=== PATIENT | male | born 1970 | race Caucasian/White ===

== ENCOUNTER 2024-01-11 06:06 | Inpatient (IN) | payer BC, SELFPAY ==
[2024-01-02 07:45] VITALS: BMI 42.5
[2024-01-02 10:43] LABS: Hematocrit 43.9 % (39.0-52.0); Hemoglobin 15.1 g/dL (13.0-18.0); Mean Corp Hgb Conc. 34.4 g/dL (33.0-37.0); Mean Corpuscular Hgb 31.5 pg (27.0-31.0); Mean Corpuscular Volume 91.5 fL (80.0-94.0); Mean Platelet Volume 12.8 fL (7.4-10.4); Platelet Count 169 10^3/uL (130-400); Red Cell Dist. Width 13.5 % (11.5-14.5); White Blood Cell Count 5.2 10^3/uL (4.8-10.8)
[2024-01-02 11:08] LABS: ALT (SGPT) 30 U/L (0-50); AST (SGOT) 25 U/L (17-59); Albumin 4.1 g/dl (3.5-5.0); Alkaline Phosphatase 88 U/L (38-126); Blood Urea Nitrogen 16 mg/dl (9-20); Calcium 8.9 mg/dl (8.4-10.2); Carbon Dioxide 22 mmol/L (22-30); Chloride 107 mmol/L (98-107); Estimated Creatinine Clearance > 125 ml/min; Glucose 98 mg/dl (70-99); Potassium 4.6 mmol/L (3.5-5.1); Sodium 143 mmol/L (135-145); Total Bilirubin 0.4 mg/dl (0.2-1.3); Total Protein 6.5 g/dl (6.3-8.2); eGFR > 60.00
[2024-01-04 08:46] VITALS: BMI 42.5
[2024-01-11] VITALS (14 sets, daily range): BP systolic 109–152; BP diastolic 57–88; PULSE 66; O2SAT 95
[2024-01-11] MEDS: CELEBREX 200 MG PO (06:25)
[2024-01-11] MEDS: LYRICA 150 MG PO ×3 (06:26→22:41)
[2024-01-11] MEDS: TYLENOL 1000 MG PO (06:26)
[2024-01-11] MEDS: SKELAXIN 800 MG PO (06:26)
[2024-01-11] MEDS: NORMOSOL-R/PLASMALYTE-A 1000 IV (06:27)
--- NOTE | 2024-01-11 07:30 | PTCARENOTE ---
Patient ordered Vancomycin. Not profied in JUN. Patient has NKDA. Dr. OQUENDO was made aware and he discontinued the order.
[2024-01-11] MEDS: DILAUDID 0.5 MG IV ×2 (09:41→10:02)
[2024-01-11] MEDS: ULTRAM 50 MG PO ×3 (10:13→20:42)
[2024-01-11] MEDS: ZANAFLEX 2 MG PO (11:53)
[2024-01-11] MEDS: NORCO 5/325 2 TABLET PO (11:53)
[2024-01-11] MEDS: PROTONIX 40 MG PO (11:53)
--- NOTE | 2024-01-11 13:41 | W.PN.ORTHO ---
Today's Communication / Plan
-
D/c when clinically stable.
Assessment
.
Distal Motor Intact: Yes
Dressing:
Clean, dry and intact.
Assessment:
Lumbosacral stenosis and spondylolisthesis s/p L5-S1 PSF, possible foraminotomy w/ Dr Woodu 01/11/24
DVT prophylaxis - b/l SCDs/TEDs
MICHI, compliant w/ CPAP - monitor O2
- IS
- Continue CPAP HS
GERD - continue PPI
Fibromyalgia - monitor pain and adjust pain meds accordingly
MVP
s/p sleeve gastrectomy 2020
Migraines
Depression
Anxiety
Morbid obesity, BMI 42.5
Ideally should be using a back brace post-op
Plan
.
Surgery / Date: L5-S1 PSF, possible foraminotomy w/ [facility] 01/11/24
DVT Prophylaxis: Other (b/l SCDs/TEDs)
Activity:
Out of bed.
PT/OT
Discharge Plan: Home
Subjective
.
.:
Patient examined resting in his chair.
Low back pain '5/' but tolerable currently.
Denies any new significant complaints.
Vital Signs and Labs
.
Vital Signs and Labs:
Lab Results
01/02/24 07:21
01/02/24 07:21
Temp Pulse Resp BP Pulse Ox
97.6 F 63 10 131/77 97
01/11/24 09:18 01/11/24 10:00 01/11/24 10:00 01/11/24 10:00 01/11/24 10:00
Physical Exam
-
HEENT: No pallor, cyanosis, or jaundice. Throat clear.
NECK: Supple. No JVD.
RESPIRATORY: Lungs clear to auscultation.
CVS: S1, S2 normal. RRR.�
ABDOMEN: Soft, non-tender. No distension. Morbidly obese.
EXTREMITIES: Strength equal, no calf pain with palpation/dorsiflexion. Calves soft.
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 No focal deficits. 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
[2024-01-11] MEDS: DELTASONE 40 MG PO (15:25)
[2024-01-11] MEDS: ANCEF 5 IV ×2 (15:26→23:20)
[2024-01-11] MEDS: NORMOSOL-R/PLASMALYTE-A IV (19:30)
[2024-01-11] MEDS: COLACE 100 MG PO (20:42)
[2024-01-11] MEDS: SENOKOT 17.2 MG PO (20:42)
[2024-01-11] MEDS: MAALOX 30 ML PO (20:47)
[2024-01-12] MEDS: NORMOSOL-R/PLASMALYTE-A IV (00:11)
[2024-01-12] MEDS: ULTRAM 50 MG PO ×2 (02:41→08:41)
[2024-01-12 03:23] VITALS: BP 109/61
[2024-01-12] MEDS: NORMOSOL-R/PLASMALYTE-A 1000 IV (04:32)
[2024-01-12] MEDS: NORCO 5/325 2 TABLET PO (04:39)
[2024-01-12 05:49] LABS: Hematocrit 38.1 % (39.0-52.0); Hemoglobin 13.2 g/dL (13.0-18.0)
[2024-01-12 06:30] LABS: Blood Urea Nitrogen 19 mg/dl (9-20); Calcium 8.8 mg/dl (8.4-10.2); Carbon Dioxide 26 mmol/L (22-30); Chloride 102 mmol/L (98-107); Estimated Creatinine Clearance > 125 ml/min; Glucose 105 mg/dl (70-99); Potassium 4.4 mmol/L (3.5-5.1); Sodium 140 mmol/L (135-145); eGFR > 60.00
[2024-01-12 07:11] VITALS: BP 97/47
--- NOTE | 2024-01-12 07:55 | W.DS.TRANS ---
DC Summary - [employer]
-
Discharge Instructions:
Discharge Diagnosis/Procedures Lumbosacral stenosis and spondylolisthesis s/p
L5-S1 posterior fusion, possible foraminotomy w/
Dr Allen 01/11/24
Diet Regular
Activity As tolerated
Additional Activity No heavy lifting >10 lbs
Driving Restrictions Not until seen by your Dr
Bathing Restrictions OK to shower in 4 days
Instructions:
Stand-Alone Forms: [facility]
Changes to Home Medications: No
Discharge Medications:
DC Medications w/original date entered in [email or web address]
hydrocodone 10 mg-acetaminophen 325 mg tablet 1 tab PO BID 01/04/24
naproxen 500 mg tablet 500 mg PO BID 01/04/24
omeprazole 40 mg capsule,delayed release 40 mg PO DAILY 01/04/24
pregabalin 150 mg capsule (Lyrica) 150 mg PO TID 01/04/24
Home Medication Changes
Pending Results: No
--- NOTE | 2024-01-12 07:55 | W.PN.SP ---
Today's Communication / Plan
-
D/c post PT
Doing well
Subjective / Objective
Subjective Data
Doing well
Pain is better in legs
Back is sore
Denies new weakness
NEuro stable
PT
D/c today
Objective Data
Vital Signs
Temp Pulse Resp BP Pulse Ox
97.2 F 57 22 109/61 95
01/12/24 03:23 01/12/24 03:23 01/12/24 03:23 01/12/24 03:23 01/12/24 03:23
Intake and Output
01/11/24 01/12/24 01/13/24
06:59 06:59 06:59
Intake Total 2540 / 2540
Output Total 500 / 500
Balance 2039 / 2040
Intake:
Oral fluids 840 / 840
IV fluids (Total) 1700 / 1700
Normosol 500 / 500
Output:
Urine, Voided 500 / 500
Other:
Number of approximated MODERATE 2
amounts of urine
Lab Data
01/12/24 05:04
01/12/24 05:04
Physical Exam
-
Neuro Stable
[2024-01-12] MEDS: SENOKOT 17.2 MG PO (08:41)
[2024-01-12] MEDS: LYRICA 150 MG PO (08:41)
[2024-01-12] MEDS: PROTONIX 40 MG PO (08:41)
[2024-01-12] MEDS: DELTASONE 40 MG PO (08:41)
[2024-01-12] MEDS: COLACE 100 MG PO (08:42)
[2024-01-12 09:50] VITALS: BP 124/74
--- NOTE | 2024-01-12 10:09 | CM ---
Patient seen sitting in chair with back brace.
PT to eval.
IA completed. Case management consult completed.
Lives in a 2 story home with his with 4 steps to enter, flight steps to second floor
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
DME: CPAP ([facility]), cane
no needs anticipated
PCP: Ramesh Mcgrath
Pharmacy: [address], [place]
Plan: Home, no needs anticipated
to transport
--- NOTE | 2024-01-12 10:35 | W.PN.ORTHO ---
Today's Communication / Plan
-
D/c today since clinically stable, did well w/ PT and OT.
Assessment
.
Distal Motor Intact: Yes
Dressing:
Clean, dry and intact.
Assessment:
Lumbosacral stenosis and spondylolisthesis s/p L5-S1 PSF w/ Dr Woodu 01/11/24
DVT prophylaxis - b/l SCDs/TEDs
MICHI, compliant w/ CPAP - O2 stable on RA
- IS
- Continue CPAP HS
GERD - continue PPI
Fibromyalgia - pain well tolerated by POD 1 w/ current medication regimen
MVP
s/p sleeve gastrectomy 2020
Migraines
Depression
Anxiety
Morbid obesity, BMI 42.5
Ideally should be using a back brace post-op
Plan
.
Surgery / Date: L5-S1 PSF w/ Dr Woodu 01/11/24
DVT Prophylaxis: Other (b/l SCDs/TEDs)
Activity:
Out of bed.
PT/OT
Discharge Plan: Home
Subjective
.
.:
Patient resting comfortably in bed this AM.
Low back pain tolerable w/ current pain meds.
Denies any new significant complaints.
AM labs stable.
Eager for potential d/c today.
Vital Signs and Labs
.
Vital Signs and Labs:
Lab Results
01/12/24 05:04
01/12/24 05:04
Temp Pulse Resp BP Pulse Ox
97.6 F 56 22 97/47 98
01/12/24 07:11 01/12/24 07:11 01/12/24 07:11 01/12/24 07:11 01/12/24 07:11
Physical Exam
-
HEENT: No pallor, cyanosis, or jaundice. Throat clear.
NECK: Supple. No JVD.
RESPIRATORY: Lungs clear to auscultation.
CVS: S1, S2 normal. RRR.
ABDOMEN: Soft, non-tender. No distension. Morbidly obese.
EXTREMITIES: Strength equal, no calf pain with palpation/dorsiflexion. Calves soft.
MANAGER HRIS: AOx3. No focal deficits. 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
--- NOTE | 2024-01-12 10:45 | W.DS.TRANS ---
DC Summary - [employer]
-
Discharge Instructions:
Discharge Diagnosis/Procedures Lumbosacral stenosis and spondylolisthesis s/p
L5-S1 posterior fusion w/ Dr Allen 01/11/24
Diet Regular
Activity As tolerated
Additional Activity No heavy lifting >10 lbs
Driving Restrictions Not until seen by your Dr
Bathing Restrictions OK to shower in 4 days
Instructions:
Stand-Alone Forms: [facility].
Changes to Home Medications: Yes
Discharge Medications:
DC Medications w/original date entered in [employer]
omeprazole 40 mg capsule,delayed release 40 mg PO DAILY GERD 01/04/24
Saccharomyces boulardii 250 mg capsule (Florastor) 250 mg PO BID #10 caps 01/12/24
acetaminophen 325 mg tablet 650 mg (2 x 325 mg) PO Q6H PRN mild pain #60 tabs 01/12/24
cephalexin 500 mg capsule 500 mg PO QID #20 caps 01/12/24
docusate sodium 100 mg capsule 100 mg PO BID #30 caps 01/12/24
hydrocodone 10 mg-acetaminophen 325 mg tablet 0.5 - 1 tab PO Q6H PRN moderate-severe pain #0 tabs 01/12/24
ondansetron HCl 4 mg tablet 4 mg PO Q6H PRN nausea and vomiting #30 tabs 01/12/24
prednisone 10 mg tablet 30 mg (3 x 10 mg) PO TAPER #12 tabs 01/12/24
pregabalin 150 mg capsule (Lyrica) 150 mg PO TID Mental Health/Anxiety #0 caps 01/12/24
sennosides 8.6 mg tablet (Senna Laxative) 17.2 mg (2 x 8.6 mg) PO BID #30 tabs 01/12/24
tizanidine 2 mg tablet 2 mg PO TID PRN muscle spasms #15 tabs 01/12/24
Home Medication Changes
Saccharomyces boulardii 250 mg capsule (Florastor) 250 mg PO BID #10 caps 01/12/24
acetaminophen 325 mg tablet 650 mg (2 x 325 mg) PO Q6H PRN mild pain #60 tabs 01/12/24
cephalexin 500 mg capsule 500 mg PO QID #20 caps 01/12/24
docusate sodium 100 mg capsule 100 mg PO BID #30 caps 01/12/24
hydrocodone 10 mg-acetaminophen 325 mg tablet 0.5 - 1 tab PO Q6H PRN moderate-severe pain #0 tabs 01/12/24
ondansetron HCl 4 mg tablet 4 mg PO Q6H PRN nausea and vomiting #30 tabs 01/12/24
prednisone 10 mg tablet 30 mg (3 x 10 mg) PO TAPER #12 tabs 01/12/24
pregabalin 150 mg capsule (Lyrica) 150 mg PO TID Mental Health/Anxiety #0 caps 01/12/24
sennosides 8.6 mg tablet (Senna Laxative) 17.2 mg (2 x 8.6 mg) PO BID #30 tabs 01/12/24
tizanidine 2 mg tablet 2 mg PO TID PRN muscle spasms #15 tabs 01/12/24
Pending Results: No
[2024-01-12 11:27] VITALS: BP 118/69
== END 2024-01-12 11:35 | disposition home or self-care (01) | DRG 451 ==
LOC: 2 SOUTH 06:06
PROVIDERS: Physician Assistant; ADMITTING PHYSICIAN Orthopaedic Surgery Orthopaedic Surgery of the Spine; FAMILY PHYSICIAN Family Medicine
PROC: 0SG30AJ Fusion of Lumbosacral Joint with Interbody Fusion Device, Posterior Approach, Anterior Column, Open Approach (ICD-10-PCS; 2024-01-11)
DX: M48.07 Spinal stenosis, lumbosacral region (principal); Z68.41 Body mass index [BMI] 40.0-44.9, adult; M43.17 Spondylolisthesis, lumbosacral region; G47.33 Obstructive sleep apnea (adult) (pediatric); K21.9 Gastro-esophageal reflux disease without esophagitis; M79.7 Fibromyalgia; E66.01 Morbid (severe) obesity due to excess calories
CPT/HCPCS: 36415; 72100; 76000; 80048; 80053; 85014; 85018; 85027; 86850; 86900; 86901; 87070; 93005; 97116; 97163; 97167; 97530; 97535; C1713; C1776